=== PATIENT | male | born 1955 | race American Indian/Alaskan Native ===

== ENCOUNTER 2018-03-01 12:51 | Emergency (ER) | payer MEDICARE, MEDICAID ==
[2018-03-01 12:52] VITALS: BMI 22.4
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
[2018-03-01 18:06] VITALS: BP 128/72; PULSE 78; RESP 18; TEMP 98.7; O2SAT 99
== END 2018-03-01 18:04 ==
LOC: H.ER 12:51
DX: F32.9 Major depressive disorder, single episode, unspecified (principal); Z86.718 Personal history of other venous thrombosis and embolism; G89.29 Other chronic pain; I12.0 Hypertensive chronic kidney disease with stage 5 chronic kidney disease or end stage renal disease; N18.6 End stage renal disease; Z79.82 Long term (current) use of aspirin; E78.00 Pure hypercholesterolemia, unspecified